=== PATIENT | female | born 1940 | race Asian ===

== ENCOUNTER 2017-02-15 05:51 | Inpatient (IN) | payer MEDICARE, OTHER ==
[~2017-02-15] VITALS: Ht 142.2 cm; Wt 42.0 kg
[~2017-02-15 05:51] MED LIST: ALBU8.5H8 IH; ATOR40TA28 PO; LEVO100T4 PO; LISI-660 PO; PANT40TA25 PO; RANI150T7 PO; TRAM50TA4 PO
[2017-02-15] MEDS ORDERED: TERA2 PO (06:03)
[2017-02-15] MEDS ORDERED: VITAD1000 PO (06:03)
[2017-02-15] MEDS ORDERED: ALBU8HFA4 IH (06:03)
[2017-02-15] MEDS ORDERED: TIOT4MIS2 IH (06:03)
[2017-02-15] MEDS ORDERED: ASPI81 PO (06:03)
[2017-02-15] MEDS ORDERED: VANC125C5 PO (06:03)
[2017-02-15] MEDS ORDERED: LACT30L PO (06:03)
[2017-02-15] MEDS ORDERED: ISOS30TA6 PO (06:03)
[2017-02-15] MEDS ORDERED: SERT100T12 PO (06:03)
[2017-02-15] MEDS ORDERED: MIRT15 PO (06:03)
[2017-02-15] MEDS ORDERED: HYDR-4061 PO (06:03)
[2017-02-15] MEDS ORDERED: ALBUTEROL SULFATE 2.5 MG/0.5 ML NEB SOLUTION NEB ONE (06:15)
[2017-02-15] MEDS ORDERED: MethylPREDNISolone SOD SUCC 125 MG/2 ML VIAL IVP ONE (06:15)
[2017-02-15] MEDS ORDERED: IPRATROPIUM BROMIDE 0.5 MG/2.5 ML NEB SOLUTION NEB ONE (06:15)
[2017-02-15] MEDS ORDERED: FUROSEMIDE 20 MG/2 ML VIAL IVP ONE ×2 (06:15→21:45)
[2017-02-15] MEDS ORDERED: NITROGLYCERIN 2% (1 GM=INCH) PACKET TP ONE (06:15)
[2017-02-15] MEDS ORDERED: AZITHROMYCIN 500 MG/NS 250 ML IV ONE (06:30)
[2017-02-15] MEDS ORDERED: CefTRIAXone 1 GM/DEXTROSE 50 ML IV ONE (06:30)
[2017-02-15 06:31] LABS: BASOPHILS # (AUTO) 0.03 K/uL (0.00-0.20); BASOPHILS % (AUTO) 0.4 % (0.0-2.0); EOSINOPHILS # (AUTO) 0.04 K/uL (0.00-0.70); EOSINOPHILS % (AUTO) 0.51 % (1.0-6.0); HEMATOCRIT 31.7 % (36-46); HEMOGLOBIN 10.6 g/dL (12.0-16.0); LYMPHOCYTES # (AUTO) 1.9 K/uL (1.0-4.8); LYMPHOCYTES % (AUTO) 22.5 % (22.0-44.0); MEAN CORPUSCULAR HEMOGLOBIN 34.6 pg (26.0-34.0); MEAN CORPUSCULAR HGB CONC 33.6 G/dL (31.0-37.0); MEAN CORPUSCULAR VOLUME 103 fL (80-100); MONOCYTES # (AUTO) 0.3 K/uL (0.1-1.0); MONOCYTES % (AUTO) 3.2 % (2.0-9.0); NEUTROPHILS # (AUTO) 6.1 K/uL (1.8-7.7); NEUTROPHILS % (AUTO) 73.4 % (40.0-70.0); PLATELET COUNT (AUTO) 159 K/uL (150-450); RED BLOOD CELL COUNT(AUTO) 3.07 MIL/uL (4.00-5.20); RED CELL DISTRIBUTION WIDTH 13.9 % (11.5-14.5); WHITE BLOOD COUNT (AUTO) 8.3 K/uL (4.5-11.0)
[2017-02-15 06:43] LABS: ANION GAP 12 mmol/L (8-16); CALCIUM, TOTAL 9.9 mg/dL (8.8-10.5); CARBON DIOXIDE 23 mmol/L (22-29); CHLORIDE 101 mmol/L (98-107); GLOMERULAR FILTR. RATE CALC 29 mL/min (>60); POTASSIUM 4.6 mmol/L (3.5-5.1); SODIUM SERUM 136 mmol/L (136-145); UREA NITROGEN, BLOOD 41 mg/dL (7-18)
[2017-02-15 06:58] LABS: ALANINE AMINOTRANSFERASE 34 U/L (12-78); ALBUMIN 3.8 g/dL (3.4-5.0); ASPARTATE AMINOTRANSFERASE 37 U/L (15-37); BILIRUBIN,TOTAL 0.4 mg/dL (0.1-1.0); CREATINE KINASE, TOTAL 64 U/L (26-192); THYROID STIMULATING HORMONE 2.28 uIU/mL (0.36-3.74); TOTAL PROTEIN, SERUM 8.2 g/dL (6.4-8.2)
[2017-02-15 07:21] LABS: PROTHROMBIN TIME 10.2 SEC (9.4-11.6)
[2017-02-15 07:22] LABS: B-TYPE NATRIURETIC PEPTIDE 3850 pg/mL (0-100)
[2017-02-15] MEDS ORDERED: FUROSEMIDE 40 MG/4 ML VIAL IVP ONE (07:30)
[2017-02-15 07:35] LABS: RBC MORPHOLOGY COMMENT ABNORMAL RBC MORPH
[2017-02-15 07:47] LABS: LACTIC ACID 3.2 mmol/L (0.4-2.0)
[2017-02-15 08:21] LABS: ABG A-A DIFF O2 107.8 mmHg (10-20.0); ABG BASE EXCESS -3.7 mmol/L (-2.0-3.0); ABG HCO3 21.5 mmol/L (22.0-26.0); ABG OXYHEMOGLOBIN 89.1 % (94.0-100.0); ABG PCO2 40 mmHg (35-45); ABG PH 7.357 (7.35-7.450)
[2017-02-15 08:22] LABS: IPAP, BG 14 cm H2O
[2017-02-15 08:57] LABS: REFLEX LACTIC ACID? YES YES
[2017-02-15] MEDS ORDERED: PANTOPRAZOLE SODIUM 40 MG/VIAL IVP ONE (10:30)
[2017-02-15] MEDS ORDERED: OxyCODONE HCL/ACETAMINOPHEN 5-325 MG TABLET PO PRN (11:15)
[2017-02-15] MEDS ORDERED: BISACODYL 10 MG RECTAL RECTAL SUPPOSITORY PR PRN (11:15)
[2017-02-15] MEDS ORDERED: DEXTROSE 50%-WATER 25 GM/50 ML SYRINGE IVP PRN (11:30)
[2017-02-15 11:54] VITALS: BP 148/73
[2017-02-15] MEDS: ATORVASTATIN CALCIUM 20 MG TABLET PO SCH (12:16)
[2017-02-15] MEDS: ASPIRIN 81 MG CHEWABLE TABLET PO SCH (12:17)
[2017-02-15] MEDS: CARVEDILOL 6.25 MG TABLET PO SCH ×2 (12:17→22:25)
[2017-02-15] MEDS: INSULIN ASPART 100 UNITS/ML SQ PRN ×3 (12:25→21:38)
[2017-02-15] MEDS: ACETAMINOPHEN 325 MG TABLET PO PRN (14:29)
[2017-02-15 16:06] VITALS: BP 146/66
[2017-02-15 16:22] LABS: GLUCOSE COMMENT 1 Received Meds; GLUCOSE,POINT OF CARE 235 MG/DL (70-110)
[2017-02-15] MEDS: TraMADol HCL 50 MG TABLET PO PRN (16:35)
[2017-02-15 19:31] VITALS: BP 149/73
[2017-02-15] MEDS: DOCUSATE SODIUM 100 MG CAPSULE PO SCH (20:37)
[2017-02-15] MEDS: HYDROCODONE/ACETAMINOPHEN 5-325 MG TABLET PO PRN (20:37)
[2017-02-15] MEDS ORDERED: 0.9% SODIUM CHLORIDE 5 ML NEB SOLUTION NEB ONE (20:45)
[2017-02-15] MEDS: ALBUTEROL SULFATE 2.5 MG/0.5 ML NEB SOLUTION NEB PRN (20:48)
[2017-02-15] MEDS ORDERED: HEPARIN SODIUM,PORCINE 5,000 UNITS/ML VIAL SQ SCH (21:00)
[2017-02-15] MEDS ORDERED: FUROSEMIDE 20 MG/2 ML VIAL IVP SCH (21:00)
[2017-02-15] MEDS ORDERED: HEPARIN SODIUM,PORCINE 5,000 UNITS/ML VIAL IVP ONE (21:45)
[2017-02-15] MEDS ORDERED: HEPARIN SODIUM,PORCINE 5,000 UNITS/ML VIAL IVP PRN ×2 (21:45)
[2017-02-15 22:18] LABS: BASOPHILS % (AUTO) 0.2 % (0.0-2.0); EOSINOPHILS % (AUTO) 0.1 % (1.0-6.0); HEMATOCRIT 29.9 % (36-46); HEMOGLOBIN 10.1 g/dL (12.0-16.0); LYMPHOCYTES # (AUTO) 0.9 K/uL (1.0-4.8); LYMPHOCYTES % (AUTO) 19.2 % (22.0-44.0); MEAN CORPUSCULAR HEMOGLOBIN 34.8 pg (26.0-34.0); MEAN CORPUSCULAR HGB CONC 33.8 G/dL (31.0-37.0); MEAN CORPUSCULAR VOLUME 103 fL (80-100); MONOCYTES # (AUTO) 0.5 K/uL (0.1-1.0); MONOCYTES % (AUTO) 11.7 % (2.0-9.0); NEUTROPHILS # (AUTO) 3.2 K/uL (1.8-7.7); NEUTROPHILS % (AUTO) 68.8 % (40.0-70.0); PLATELET COUNT (AUTO) 133 K/uL (150-450); RED BLOOD CELL COUNT(AUTO) 2.91 MIL/uL (4.00-5.20); RED CELL DISTRIBUTION WIDTH 14.3 % (11.5-14.5); WHITE BLOOD COUNT (AUTO) 4.7 K/uL (4.5-11.0)
[2017-02-15 22:23] VITALS: BP 151/77
[2017-02-15] MEDS: HEPARIN SODIUM 25000 UNITS/D5W 250 ML IV PRN (22:48)
[2017-02-15 23:05] LABS: PROTHROMBIN TIME 10.7 SEC (9.4-11.6)
[2017-02-15 23:15] LABS: RBC MORPHOLOGY COMMENT ABNORMAL RBC MORPH
[2017-02-16] VITALS (18 sets, daily range): BP systolic 110–194; BP diastolic 62–115
[2017-02-16] MEDS: TraMADol HCL 50 MG TABLET PO PRN ×2 (00:56→20:45)
[2017-02-16] MEDS: HYDROCODONE/ACETAMINOPHEN 5-325 MG TABLET PO PRN ×2 (03:58→11:06)
[2017-02-16 05:29] LABS: APPEARANCE,URINE CLEAR (CLEAR); GLUCOSE, URINE (UA) NEGATIVE (NEGATIVE); KETONES,URINE NEGATIVE (NEGATIVE); LEUKOCYTE ESTERASE ,URINE SMALL (NEGATIVE); OCCULT BLOOD,URINE NEGATIVE (NEGATIVE); PH,URINE 5.5 (5.0-8.0); PROTEIN,URINE NEGATIVE (NEGATIVE)
[2017-02-16 05:35] LABS: ADD UA MICROSCOPIC YES
[2017-02-16 05:58] LABS: RBC,URINE 0-2 /HPF (0-2); SQUAMOUS EPITHELIAL CELL,UR Few /LPF (None Seen)
[2017-02-16 06:19] LABS: BASOPHILS % (AUTO) 0.5 % (0.0-2.0); EOSINOPHILS % (AUTO) 1.3 % (1.0-6.0); HEMATOCRIT 29.2 % (36-46); HEMOGLOBIN 9.8 g/dL (12.0-16.0); LYMPHOCYTES # (AUTO) 1.3 K/uL (1.0-4.8); LYMPHOCYTES % (AUTO) 22.4 % (22.0-44.0); MEAN CORPUSCULAR HEMOGLOBIN 34.6 pg (26.0-34.0); MEAN CORPUSCULAR HGB CONC 33.5 G/dL (31.0-37.0); MEAN CORPUSCULAR VOLUME 103 fL (80-100); MONOCYTES # (AUTO) 0.6 K/uL (0.1-1.0); MONOCYTES % (AUTO) 10.7 % (2.0-9.0); NEUTROPHILS # (AUTO) 3.9 K/uL (1.8-7.7); NEUTROPHILS % (AUTO) 65.1 % (40.0-70.0); PLATELET COUNT (AUTO) 141 K/uL (150-450); RED BLOOD CELL COUNT(AUTO) 2.84 MIL/uL (4.00-5.20); WHITE BLOOD COUNT (AUTO) 5.9 K/uL (4.5-11.0)
[2017-02-16] MEDS: ACETAMINOPHEN 325 MG TABLET PO PRN (06:28)
[2017-02-16] MEDS: INSULIN ASPART 100 UNITS/ML SQ PRN (06:43)
[2017-02-16 06:56] LABS: ALBUMIN 3.4 g/dL (3.4-5.0); BILIRUBIN,TOTAL 0.2 mg/dL (0.1-1.0); CALCIUM, TOTAL 9.6 mg/dL (8.8-10.5); CREATININE 1.67 mg/dL (0.60-1.30); MAGNESIUM 2.2 mg/dL (1.80-2.40); POTASSIUM 4.3 mmol/L (3.5-5.1); TOTAL PROTEIN, SERUM 7.2 g/dL (6.4-8.2)
[2017-02-16 07:04] LABS: HEMOGLOBIN A1C 5.1 % (4.5-6.2)
[2017-02-16 07:42] LABS: GLUCOSE COMMENT 1 Received Meds; GLUCOSE,POINT OF CARE 112 MG/DL (70-110)
[2017-02-16] MEDS: FUROSEMIDE 40 MG/4 ML VIAL IVP SCH ×2 (08:54→20:45)
[2017-02-16] MEDS: ASPIRIN 81 MG CHEWABLE TABLET PO SCH (08:54)
[2017-02-16] MEDS: CARVEDILOL 6.25 MG TABLET PO SCH (08:55)
[2017-02-16] MEDS: PANTOPRAZOLE SODIUM 40 MG DR TABLET PO SCH (08:55)
[2017-02-16] MEDS: ATORVASTATIN CALCIUM 20 MG TABLET PO SCH (08:55)
[2017-02-16] MEDS: DOCUSATE SODIUM 100 MG CAPSULE PO SCH ×2 (08:55→20:10)
[2017-02-16 08:57] LABS: RBC MORPHOLOGY COMMENT ABNORMAL RBC MORPH
[2017-02-16 10:07] LABS: GLUCOSE,POINT OF CARE 106 MG/DL (70-110)
[2017-02-16] MEDS: HEPARIN SODIUM 25000 UNITS/D5W 250 ML IV PRN (10:12)
[2017-02-16 10:27] LABS: GLUCOSE COMMENT 1 Received Meds; GLUCOSE,POINT OF CARE 150 MG/DL (70-110)
[2017-02-16] MEDS ORDERED: VERAPAMIL HCL 2.5 MG/ML 2 ML VIAL ONE (16:12)
[2017-02-16] MEDS ORDERED: HEPARIN SODIUM 1000 UNITS/NS 1,000 ML ONE (16:12)
[2017-02-16] MEDS ORDERED: IOHEXOL 300 MG/ML 150 ML VIAL ONE (16:12)
[2017-02-16] MEDS ORDERED: LIDOCAINE HCL/PF 1% 30 ML VIAL ONE ×2 (16:12→17:03)
[2017-02-16] MEDS ORDERED: NITROGLYCERIN 50 MG/D5% WATER 0 ML ONE (16:12)
[2017-02-16 16:37] LABS: GLUCOSE,POINT OF CARE 115 MG/DL (70-110)
[2017-02-16] MEDS ORDERED: LIDOCAINE HCL/PF 1% 30 ML VIAL INJ ONE (17:00)
[2017-02-16] MEDS ORDERED: SODIUM CHLORIDE 0.9% 500 ML IV ONE (17:00)
[2017-02-16] MEDS ORDERED: IOHEXOL 300 MG/ML 150 ML VIAL IARTER ONE (17:00)
[2017-02-16] MEDS ORDERED: HEPARIN SODIUM 2,000 UNITS in HEPARIN SODIUM 1000 UNITS/NS 1,000 ML IARTER ONE (17:00)
[2017-02-16] MEDS ORDERED: FUROSEMIDE 40 MG/4 ML VIAL ONE ×2 (17:18→17:29)
[2017-02-16] MEDS ORDERED: FUROSEMIDE 40 MG/4 ML VIAL IVP ONE ×3 (17:30→18:30)
[2017-02-16] MEDS ORDERED: MORPHINE SULFATE 2 MG/ML SYRINGE ONE (17:40)
[2017-02-16] MEDS ORDERED: NITROGLYCERIN 2% (1 GM=INCH) PACKET TP ONE ×2 (17:41→17:45)
[2017-02-16] MEDS ORDERED: HydrALAZINE HCL 20 MG/ML VIAL IVP PRN (17:45)
[2017-02-16] MEDS ORDERED: MORPHINE SULFATE 2 MG/ML SYRINGE IVP ONE (17:45)
[2017-02-16] MEDS: CARVEDILOL 12.5 MG TABLET PO SCH (20:10)
[2017-02-17] VITALS (13 sets, daily range): BP systolic 128–160; BP diastolic 61–83
[2017-02-17] MEDS: ACETAMINOPHEN 325 MG TABLET PO PRN ×3 (02:46→18:43)
[2017-02-17] MEDS: TraMADol HCL 50 MG TABLET PO PRN ×2 (05:01→15:23)
[2017-02-17 05:03] LABS: BASOPHILS # (AUTO) 0.07 K/uL (0.00-0.20); BASOPHILS % (AUTO) 1.4 % (0.0-2.0); EOSINOPHILS # (AUTO) 0.07 K/uL (0.00-0.70); EOSINOPHILS % (AUTO) 1.33 % (1.0-6.0); HEMOGLOBIN 9.4 g/dL (12.0-16.0); LYMPHOCYTES # (AUTO) 1.2 K/uL (1.0-4.8); LYMPHOCYTES % (AUTO) 22.3 % (22.0-44.0); MEAN CORPUSCULAR HEMOGLOBIN 34.3 pg (26.0-34.0); MEAN CORPUSCULAR HGB CONC 33.6 G/dL (31.0-37.0); MEAN CORPUSCULAR VOLUME 102 fL (80-100); MONOCYTES # (AUTO) 0.5 K/uL (0.1-1.0); MONOCYTES % (AUTO) 10.4 % (2.0-9.0); NEUTROPHILS # (AUTO) 3.3 K/uL (1.8-7.7); NEUTROPHILS % (AUTO) 64.5 % (40.0-70.0); PLATELET COUNT (AUTO) 136 K/uL (150-450); RED BLOOD CELL COUNT(AUTO) 2.75 MIL/uL (4.00-5.20); RED CELL DISTRIBUTION WIDTH 13.9 % (11.5-14.5); WHITE BLOOD COUNT (AUTO) 5.2 K/uL (4.5-11.0)
[2017-02-17 05:16] LABS: ALBUMIN 3.5 g/dL (3.4-5.0); BILIRUBIN,TOTAL 0.4 mg/dL (0.1-1.0); CALCIUM, TOTAL 9.4 mg/dL (8.8-10.5); CREATININE 1.56 mg/dL (0.60-1.30); PHOSPHORUS 3.7 mg/dL (2.5-4.9); POTASSIUM 3.4 mmol/L (3.5-5.1); TOTAL PROTEIN, SERUM 7.2 g/dL (6.4-8.2)
[2017-02-17 07:22] LABS: GLUCOSE,POINT OF CARE 117 MG/DL (70-110)
[2017-02-17] MEDS: DOCUSATE SODIUM 100 MG CAPSULE PO SCH ×3 (09:00→21:00)
[2017-02-17] MEDS: PANTOPRAZOLE SODIUM 40 MG DR TABLET PO SCH (09:07)
[2017-02-17] MEDS: ATORVASTATIN CALCIUM 20 MG TABLET PO SCH (09:08)
[2017-02-17] MEDS: CARVEDILOL 12.5 MG TABLET PO SCH ×2 (09:08→21:03)
[2017-02-17] MEDS: ASPIRIN 81 MG CHEWABLE TABLET PO SCH (09:08)
[2017-02-17] MEDS: AmLODIPine BESYLATE 5 MG TABLET PO SCH (09:08)
[2017-02-17] MEDS: FUROSEMIDE 40 MG/4 ML VIAL IVP SCH ×2 (09:11→21:03)
[2017-02-17] MEDS ORDERED: POTASSIUM CHLORIDE 20 MEQ ER TABLET PO ONE (09:15)
[2017-02-17 10:33] LABS: RBC MORPHOLOGY COMMENT ABNORMAL RBC MORPH
[2017-02-17] MEDS: HYDROCODONE/ACETAMINOPHEN 5-325 MG TABLET PO PRN ×3 (12:05→21:03)
[2017-02-17 13:48] LABS: BASOPHILS # (AUTO) 0.02 K/uL (0.00-0.20); BASOPHILS % (AUTO) 0.4 % (0.0-2.0); EOSINOPHILS # (AUTO) 0.11 K/uL (0.00-0.70); EOSINOPHILS % (AUTO) 1.98 % (1.0-6.0); HEMATOCRIT 31.1 % (36-46); HEMOGLOBIN 10.5 g/dL (12.0-16.0); LYMPHOCYTES # (AUTO) 1.5 K/uL (1.0-4.8); LYMPHOCYTES % (AUTO) 27.1 % (22.0-44.0); MEAN CORPUSCULAR HEMOGLOBIN 34.4 pg (26.0-34.0); MEAN CORPUSCULAR HGB CONC 33.9 G/dL (31.0-37.0); MEAN CORPUSCULAR VOLUME 102 fL (80-100); MONOCYTES # (AUTO) 0.6 K/uL (0.1-1.0); MONOCYTES % (AUTO) 11.3 % (2.0-9.0); NEUTROPHILS # (AUTO) 3.3 K/uL (1.8-7.7); NEUTROPHILS % (AUTO) 59.2 % (40.0-70.0); PLATELET COUNT (AUTO) 144 K/uL (150-450); RED BLOOD CELL COUNT(AUTO) 3.06 MIL/uL (4.00-5.20); RED CELL DISTRIBUTION WIDTH 13.9 % (11.5-14.5); WHITE BLOOD COUNT (AUTO) 5.5 K/uL (4.5-11.0)
[2017-02-17 14:04] LABS: ALBUMIN 3.8 g/dL (3.4-5.0); BILIRUBIN,TOTAL 0.4 mg/dL (0.1-1.0); CALCIUM, TOTAL 9.8 mg/dL (8.8-10.5); CREATININE 1.53 mg/dL (0.60-1.30); MAGNESIUM 2.1 mg/dL (1.80-2.40); PHOSPHORUS 3.2 mg/dL (2.5-4.9); POTASSIUM 3.7 mmol/L (3.5-5.1); TOTAL PROTEIN, SERUM 7.8 g/dL (6.4-8.2)
[2017-02-17 14:07] LABS: RBC MORPHOLOGY COMMENT ABNORMAL RBC MORPH
[2017-02-18] MEDS: HYDROCODONE/ACETAMINOPHEN 5-325 MG TABLET PO PRN ×5 (01:36→21:13)
[2017-02-18] MEDS: TraMADol HCL 50 MG TABLET PO PRN (04:13)
[2017-02-18 05:29] VITALS: BP 157/73
[2017-02-18] MEDS: LEVOTHYROXINE SODIUM 100 MCG TABLET PO SCH (06:26)
[2017-02-18 07:25] LABS: CALCIUM, TOTAL 9.7 mg/dL (8.8-10.5); CREATININE 1.66 mg/dL (0.60-1.30); MAGNESIUM 2.1 mg/dL (1.80-2.40); PHOSPHORUS 3.6 mg/dL (2.5-4.9); POTASSIUM 3.8 mmol/L (3.5-5.1); THYROID STIMULATING HORMONE 2.71 uIU/mL (0.36-3.74)
[2017-02-18 08:00] VITALS: BP 107/58
[2017-02-18] MEDS: ATORVASTATIN CALCIUM 20 MG TABLET PO SCH (08:32)
[2017-02-18] MEDS: FUROSEMIDE 40 MG/4 ML VIAL IVP SCH ×2 (08:32→20:44)
[2017-02-18] MEDS: CARVEDILOL 12.5 MG TABLET PO SCH ×2 (08:32→20:44)
[2017-02-18] MEDS: PANTOPRAZOLE SODIUM 40 MG DR TABLET PO SCH (08:32)
[2017-02-18] MEDS: ASPIRIN 81 MG CHEWABLE TABLET PO SCH (08:32)
[2017-02-18] MEDS: DOCUSATE SODIUM 100 MG CAPSULE PO SCH ×2 (08:33→20:44)
[2017-02-18] MEDS: AmLODIPine BESYLATE 5 MG TABLET PO SCH (09:00)
[2017-02-18 11:41] VITALS: BP 94/59
[2017-02-18 11:54] LABS: GLUCOSE,POINT OF CARE 105 MG/DL (70-110)
[2017-02-18 11:54] LABS: GLUCOSE,POINT OF CARE 129 MG/DL (70-110)
[2017-02-18 16:30] VITALS: BP 96/66
[2017-02-18 16:48] LABS: GLUCOSE,POINT OF CARE 126 MG/DL (70-110)
[2017-02-18 20:06] VITALS: BP 147/74
[2017-02-18] MEDS: OXYGEN THERAPY IH SCH ×2 (20:44→20:55)
[2017-02-18] MEDS: INSULIN ASPART 100 UNITS/ML SQ PRN (21:16)
[2017-02-18 23:55] VITALS: BP 129/58
[2017-02-19] VITALS (15 sets, daily range): BP systolic 77–147; BP diastolic 36–71
[2017-02-19] MEDS: LEVOTHYROXINE SODIUM 100 MCG TABLET PO SCH (06:05)
[2017-02-19] MEDS: PANTOPRAZOLE SODIUM 40 MG DR TABLET PO SCH (08:43)
[2017-02-19] MEDS: DOCUSATE SODIUM 100 MG CAPSULE PO SCH ×2 (08:43→19:56)
[2017-02-19] MEDS: HYDROCODONE/ACETAMINOPHEN 5-325 MG TABLET PO PRN ×4 (08:44→21:01)
[2017-02-19] MEDS: ASPIRIN 81 MG CHEWABLE TABLET PO SCH (08:44)
[2017-02-19] MEDS: CARVEDILOL 12.5 MG TABLET PO SCH ×2 (08:44→19:56)
[2017-02-19] MEDS: ATORVASTATIN CALCIUM 20 MG TABLET PO SCH (08:44)
[2017-02-19] MEDS: AmLODIPine BESYLATE 5 MG TABLET PO SCH (08:45)
[2017-02-19] MEDS: FUROSEMIDE 40 MG/4 ML VIAL IVP SCH ×2 (08:45→19:56)
[2017-02-19] MEDS: TraMADol HCL 50 MG TABLET PO PRN ×2 (14:32→19:56)
[2017-02-19 15:37] LABS: GLUCOSE,POINT OF CARE 86 MG/DL (70-110)
[2017-02-19 15:37] LABS: GLUCOSE COMMENT 1 Received Meds; GLUCOSE,POINT OF CARE 186 MG/DL (70-110)
[2017-02-19 15:42] LABS: GLUCOSE COMMENT 1 Received Meds; GLUCOSE,POINT OF CARE 118 MG/DL (70-110)
[2017-02-19] MEDS: INSULIN ASPART 100 UNITS/ML SQ PRN (18:13)
[2017-02-19 19:47] LABS: GLUCOSE,POINT OF CARE 95 MG/DL (70-110)
[2017-02-19] MEDS: OXYGEN THERAPY IH SCH (19:56)
[2017-02-19] MEDS: ACETAMINOPHEN 325 MG TABLET PO PRN (19:57)
[2017-02-19 20:32] LABS: GLUCOSE,POINT OF CARE 112 MG/DL (70-110)
[2017-02-20] VITALS (8 sets, daily range): BP systolic 98–162; BP diastolic 59–75
[2017-02-20] MEDS: HYDROCODONE/ACETAMINOPHEN 5-325 MG TABLET PO PRN ×5 (01:20→23:32)
[2017-02-20] MEDS: LEVOTHYROXINE SODIUM 100 MCG TABLET PO SCH (06:23)
[2017-02-20 06:32] LABS: BASOPHILS % (AUTO) 0.5 % (0.0-2.0); EOSINOPHILS % (AUTO) 5.4 % (1.0-6.0); HEMATOCRIT 30.8 % (36-46); HEMOGLOBIN 10.2 g/dL (12.0-16.0); LYMPHOCYTES # (AUTO) 1.4 K/uL (1.0-4.8); LYMPHOCYTES % (AUTO) 29.1 % (22.0-44.0); MEAN CORPUSCULAR HEMOGLOBIN 33.8 pg (26.0-34.0); MEAN CORPUSCULAR HGB CONC 33.2 G/dL (31.0-37.0); MEAN CORPUSCULAR VOLUME 102 fL (80-100); MONOCYTES # (AUTO) 0.6 K/uL (0.1-1.0); MONOCYTES % (AUTO) 11.6 % (2.0-9.0); NEUTROPHILS # (AUTO) 2.6 K/uL (1.8-7.7); NEUTROPHILS % (AUTO) 53.4 % (40.0-70.0); PLATELET COUNT (AUTO) 161 K/uL (150-450); RED BLOOD CELL COUNT(AUTO) 3.03 MIL/uL (4.00-5.20); RED CELL DISTRIBUTION WIDTH 13.9 % (11.5-14.5); WHITE BLOOD COUNT (AUTO) 4.9 K/uL (4.5-11.0)
[2017-02-20 06:50] LABS: ALBUMIN 3.4 g/dL (3.4-5.0); BILIRUBIN,TOTAL 0.3 mg/dL (0.1-1.0); CALCIUM, TOTAL 9.4 mg/dL (8.8-10.5); CREATININE 1.51 mg/dL (0.60-1.30); MAGNESIUM 2.3 mg/dL (1.80-2.40); PHOSPHORUS 3.9 mg/dL (2.5-4.9); POTASSIUM 3.9 mmol/L (3.5-5.1); TOTAL PROTEIN, SERUM 7.2 g/dL (6.4-8.2)
[2017-02-20] MEDS: ATORVASTATIN CALCIUM 20 MG TABLET PO SCH (08:17)
[2017-02-20] MEDS: PANTOPRAZOLE SODIUM 40 MG DR TABLET PO SCH (08:17)
[2017-02-20] MEDS: TraMADol HCL 50 MG TABLET PO PRN (08:17)
[2017-02-20] MEDS: ASPIRIN 81 MG CHEWABLE TABLET PO SCH (08:17)
[2017-02-20] MEDS: CARVEDILOL 12.5 MG TABLET PO SCH ×2 (08:18→20:39)
[2017-02-20] MEDS: OXYGEN THERAPY IH SCH ×2 (08:20→20:40)
[2017-02-20] MEDS: DOCUSATE SODIUM 100 MG CAPSULE PO SCH ×2 (08:20→20:40)
[2017-02-20] MEDS: FUROSEMIDE 40 MG/4 ML VIAL IVP SCH (09:23)
[2017-02-20] MEDS: ACETAMINOPHEN 325 MG TABLET PO PRN ×3 (09:24→20:39)
[2017-02-20] MEDS: LORazepam 0.5 MG TABLET PO PRN ×2 (14:51→20:39)
[2017-02-20] MEDS ORDERED: 0.9% SODIUM CHLORIDE 5 ML NEB SOLUTION NEB ONE (23:29)
[2017-02-20] MEDS: ALBUTEROL SULFATE 2.5 MG/0.5 ML NEB SOLUTION NEB PRN (23:30)
[2017-02-21] VITALS (14 sets, daily range): BP systolic 83–152; BP diastolic 30–81
[2017-02-21] MEDS: LORazepam 0.5 MG TABLET PO PRN ×2 (02:18→20:06)
[2017-02-21] MEDS: HYDROCODONE/ACETAMINOPHEN 5-325 MG TABLET PO PRN ×3 (03:26→20:50)
[2017-02-21] MEDS: LEVOTHYROXINE SODIUM 100 MCG TABLET PO SCH (05:37)
[2017-02-21 06:03] LABS: GLUCOSE,POINT OF CARE 180 MG/DL (70-110)
[2017-02-21 06:08] LABS: GLUCOSE,POINT OF CARE 99 MG/DL (70-110)
[2017-02-21 07:00] LABS: CALCIUM, TOTAL 9.7 mg/dL (8.8-10.5); CREATININE 1.58 mg/dL (0.60-1.30); MAGNESIUM 2.4 mg/dL (1.80-2.40); PHOSPHORUS 4.2 mg/dL (2.5-4.9); POTASSIUM 4.4 mmol/L (3.5-5.1)
[2017-02-21 07:58] LABS: GLUCOSE,POINT OF CARE 102 MG/DL (70-110)
[2017-02-21 07:58] LABS: GLUCOSE COMMENT 1 Received Meds; GLUCOSE,POINT OF CARE 122 MG/DL (70-110)
[2017-02-21 07:59] LABS: GLUCOSE,POINT OF CARE 135 MG/DL (70-110)
[2017-02-21] MEDS: OXYGEN THERAPY IH SCH ×2 (08:00→20:16)
[2017-02-21] MEDS: ATORVASTATIN CALCIUM 20 MG TABLET PO SCH (09:00)
[2017-02-21] MEDS: ASPIRIN 81 MG CHEWABLE TABLET PO SCH (09:00)
[2017-02-21] MEDS: ACETYLCYSTEINE 20% 200 MG/ML 4 ML ORAL SOLUTION PO SCH ×2 (09:00→20:28)
[2017-02-21] MEDS ORDERED: FUROSEMIDE 40 MG/4 ML VIAL IVP SCH (09:00)
[2017-02-21] MEDS: PANTOPRAZOLE SODIUM 40 MG DR TABLET PO SCH (09:00)
[2017-02-21] MEDS: CARVEDILOL 12.5 MG TABLET PO SCH ×2 (09:00→20:06)
[2017-02-21] MEDS: DOCUSATE SODIUM 100 MG CAPSULE PO SCH ×2 (09:00→20:06)
[2017-02-21 11:12] LABS: GLUCOSE COMMENT 1 Received Meds; GLUCOSE,POINT OF CARE 136 MG/DL (70-110)
[2017-02-21 11:12] LABS: GLUCOSE,POINT OF CARE 99 MG/DL (70-110)
[2017-02-21] MEDS ORDERED: LIDOCAINE HCL/PF 1% 30 ML VIAL ONE (11:50)
[2017-02-21] MEDS ORDERED: HEPARIN SODIUM 1000 UNITS/NS 1,000 ML ONE (11:50)
[2017-02-21] MEDS ORDERED: IOHEXOL 300 MG/ML 150 ML VIAL ONE (11:50)
[2017-02-21] MEDS ORDERED: FUROSEMIDE 40 MG/4 ML VIAL ONE (12:51)
[2017-02-21] MEDS ORDERED: FentaNYL CITRATE-PF 100 MCG/2 ML VIAL ONE (13:26)
[2017-02-21] MEDS ORDERED: HEPARIN SODIUM 2,000 UNITS in HEPARIN SODIUM 1000 UNITS/NS 1,000 ML IARTER ONE (13:28)
[2017-02-21] MEDS ORDERED: FentaNYL CITRATE-PF 100 MCG/2 ML VIAL IVP ONE ×2 (13:30→14:00)
[2017-02-21] MEDS ORDERED: IOHEXOL 300 MG/ML 150 ML VIAL IARTER ONE (13:30)
[2017-02-21] MEDS ORDERED: LIDOCAINE HCL/PF 1% 30 ML VIAL INJ ONE (13:30)
[2017-02-21] MEDS ORDERED: IOHEXOL 300 MG/ML 100 ML VIAL ONE (13:41)
[2017-02-21] MEDS ORDERED: FUROSEMIDE 40 MG/4 ML VIAL IVP ONE (14:00)
[2017-02-21] MEDS: SODIUM CHLORIDE 0.9% 1,000 ML IV SCH (16:25)
[2017-02-21] MEDS ORDERED: 0.9% SODIUM CHLORIDE 5 ML NEB SOLUTION NEB ONE ×2 (16:27→16:55)
[2017-02-21] MEDS: ALBUTEROL SULFATE 2.5 MG/0.5 ML NEB SOLUTION NEB PRN ×2 (16:33→16:56)
[2017-02-21] MEDS: INSULIN ASPART 100 UNITS/ML SQ PRN ×2 (18:39→20:56)
[2017-02-21] MEDS: FUROSEMIDE 40 MG/4 ML VIAL IVP SCH (20:06)
[2017-02-22] VITALS (12 sets, daily range): BP systolic 58–116; BP diastolic 52–80
[2017-02-22] MEDS: HYDROCODONE/ACETAMINOPHEN 5-325 MG TABLET PO PRN ×4 (00:12→21:36)
[2017-02-22] MEDS: TraMADol HCL 50 MG TABLET PO PRN ×2 (03:12→12:15)
[2017-02-22] MEDS: SODIUM CHLORIDE 0.9% 1,000 ML IV SCH (04:28)
[2017-02-22] MEDS: INSULIN ASPART 100 UNITS/ML SQ PRN ×2 (04:36→11:51)
[2017-02-22 05:18] LABS: HEMATOCRIT 26.7 % (36-46); HEMOGLOBIN 8.9 g/dL (12.0-16.0); MEAN CORPUSCULAR HEMOGLOBIN 34.1 pg (26.0-34.0); MEAN CORPUSCULAR HGB CONC 33.4 G/dL (31.0-37.0); MEAN CORPUSCULAR VOLUME 102 fL (80-100); PLATELET COUNT (AUTO) 136 K/uL (150-450); RED BLOOD CELL COUNT(AUTO) 2.62 MIL/uL (4.00-5.20); RED CELL DISTRIBUTION WIDTH 13.6 % (11.5-14.5); WHITE BLOOD COUNT (AUTO) 6.4 K/uL (4.5-11.0)
[2017-02-22] MEDS: LEVOTHYROXINE SODIUM 100 MCG TABLET PO SCH (05:30)
[2017-02-22 05:32] LABS: ALBUMIN 3.2 g/dL (3.4-5.0); BILIRUBIN,TOTAL 0.3 mg/dL (0.1-1.0); CREATININE 1.77 mg/dL (0.60-1.30); MAGNESIUM 2.2 mg/dL (1.80-2.40); POTASSIUM 3.4 mmol/L (3.5-5.1); TOTAL PROTEIN, SERUM 6.5 g/dL (6.4-8.2)
[2017-02-22] MEDS: ACETAMINOPHEN 325 MG TABLET PO PRN ×4 (06:20→19:09)
[2017-02-22 07:45] LABS: LYMPHOCYTES % (MANUAL) 21 % (22-44); TOTAL CELLS COUNTED 100
[2017-02-22] MEDS ORDERED: POTASSIUM CHLORIDE 20 MEQ ER TABLET PO ONE (07:45)
[2017-02-22 07:46] LABS: RBC MORPHOLOGY COMMENT ABNORMAL RBC MORPH
[2017-02-22] MEDS: PANTOPRAZOLE SODIUM 40 MG DR TABLET PO SCH (08:14)
[2017-02-22] MEDS: ASPIRIN 81 MG CHEWABLE TABLET PO SCH (08:15)
[2017-02-22] MEDS: OXYGEN THERAPY IH SCH ×2 (08:15→20:32)
[2017-02-22] MEDS: DOCUSATE SODIUM 100 MG CAPSULE PO SCH ×2 (08:15→20:31)
[2017-02-22] MEDS: ATORVASTATIN CALCIUM 20 MG TABLET PO SCH (08:15)
[2017-02-22] MEDS: FUROSEMIDE 40 MG/4 ML VIAL IVP SCH ×2 (08:15→20:31)
[2017-02-22] MEDS: CARVEDILOL 12.5 MG TABLET PO SCH ×2 (08:16→20:33)
[2017-02-22] MEDS: ACETYLCYSTEINE 20% 200 MG/ML 4 ML ORAL SOLUTION PO SCH ×2 (10:45→20:32)
[2017-02-22 11:21] LABS: GLUCOSE, URINE (UA) NEGATIVE (NEGATIVE); KETONES,URINE NEGATIVE (NEGATIVE); LEUKOCYTE ESTERASE ,URINE NEGATIVE (NEGATIVE); OCCULT BLOOD,URINE MODERATE (NEGATIVE); PROTEIN,URINE SEE CONFIRM (NEGATIVE)
[2017-02-22 11:56] LABS: APPEARANCE,URINE HAZY (CLEAR)
[2017-02-22 11:58] LABS: RBC,URINE 26-50 /HPF (0-2); SQUAMOUS EPITHELIAL CELL,UR Few /LPF (None Seen); SULFOSALICYLIC ACID,URINE 2+ (Negative); WBC,URINE 0-2 /HPF (0-5)
[2017-02-22] MEDS: LORazepam 0.5 MG TABLET PO PRN (12:15)
[2017-02-22 14:13] LABS: GLUCOSE COMMENT 1 Received Meds; GLUCOSE,POINT OF CARE 145 MG/DL (70-110)
[2017-02-22 14:27] LABS: GLUCOSE COMMENT 1 Received Meds; GLUCOSE,POINT OF CARE 172 MG/DL (70-110)
[2017-02-22 14:27] LABS: GLUCOSE,POINT OF CARE 120 MG/DL (70-110)
[2017-02-22] MEDS ORDERED: 0.9% SODIUM CHLORIDE 5 ML NEB SOLUTION NEB ONE ×2 (20:31→23:29)
[2017-02-22] MEDS: ALBUTEROL SULFATE 2.5 MG/0.5 ML NEB SOLUTION NEB PRN ×2 (20:38→23:34)
[2017-02-22 22:07] LABS: GLUCOSE,POINT OF CARE 86 MG/DL (70-110)
[2017-02-23] MEDS: HYDROCODONE/ACETAMINOPHEN 5-325 MG TABLET PO PRN ×4 (01:37→20:17)
[2017-02-23] MEDS ORDERED: 0.9% SODIUM CHLORIDE 5 ML NEB SOLUTION NEB ONE ×2 (03:28→07:47)
[2017-02-23] MEDS: ALBUTEROL SULFATE 2.5 MG/0.5 ML NEB SOLUTION NEB PRN ×2 (03:31→08:00)
[2017-02-23 04:45] VITALS: BP 110/74
[2017-02-23] MEDS: TraMADol HCL 50 MG TABLET PO PRN ×2 (05:41→13:46)
[2017-02-23] MEDS: LEVOTHYROXINE SODIUM 100 MCG TABLET PO SCH (06:07)
[2017-02-23] MEDS: INSULIN ASPART 100 UNITS/ML SQ PRN ×2 (06:11→22:49)
[2017-02-23 06:35] LABS: BASOPHILS % (AUTO) 0.3 % (0.0-2.0); EOSINOPHILS % (AUTO) 0.3 % (1.0-6.0); HEMATOCRIT 25.9 % (36-46); HEMOGLOBIN 8.7 g/dL (12.0-16.0); LYMPHOCYTES # (AUTO) 0.6 K/uL (1.0-4.8); LYMPHOCYTES % (AUTO) 7.5 % (22.0-44.0); MEAN CORPUSCULAR HEMOGLOBIN 33.8 pg (26.0-34.0); MEAN CORPUSCULAR HGB CONC 33.5 G/dL (31.0-37.0); MEAN CORPUSCULAR VOLUME 101 fL (80-100); MONOCYTES # (AUTO) 0.7 K/uL (0.1-1.0); MONOCYTES % (AUTO) 9.4 % (2.0-9.0); NEUTROPHILS # (AUTO) 6.5 K/uL (1.8-7.7); NEUTROPHILS % (AUTO) 82.5 % (40.0-70.0); PLATELET COUNT (AUTO) 129 K/uL (150-450); RED BLOOD CELL COUNT(AUTO) 2.56 MIL/uL (4.00-5.20); RED CELL DISTRIBUTION WIDTH 13.8 % (11.5-14.5); WHITE BLOOD COUNT (AUTO) 7.9 K/uL (4.5-11.0)
[2017-02-23 06:56] LABS: RBC MORPHOLOGY COMMENT ABNORMAL RBC MORPH
[2017-02-23 07:09] LABS: ALBUMIN 3.4 g/dL (3.4-5.0); BILIRUBIN,TOTAL 0.4 mg/dL (0.1-1.0); CALCIUM, TOTAL 9.1 mg/dL (8.8-10.5); CREATININE 2.28 mg/dL (0.60-1.30); MAGNESIUM 2.1 mg/dL (1.80-2.40); PHOSPHORUS 4.2 mg/dL (2.5-4.9)
[2017-02-23 07:17] LABS: GLUCOSE COMMENT 1 Received Meds; GLUCOSE,POINT OF CARE 186 MG/DL (70-110)
[2017-02-23 07:22] LABS: GLUCOSE COMMENT 1 Received Meds; GLUCOSE,POINT OF CARE 165 MG/DL (70-110)
[2017-02-23 07:37] VITALS: BP 109/69
[2017-02-23] MEDS: ASPIRIN 81 MG CHEWABLE TABLET PO SCH (07:53)
[2017-02-23] MEDS: ATORVASTATIN CALCIUM 20 MG TABLET PO SCH (07:53)
[2017-02-23] MEDS: FUROSEMIDE 40 MG/4 ML VIAL IVP SCH ×2 (07:53→20:17)
[2017-02-23] MEDS: LORazepam 0.5 MG TABLET PO PRN ×2 (07:54→16:42)
[2017-02-23] MEDS: PANTOPRAZOLE SODIUM 40 MG DR TABLET PO SCH (07:55)
[2017-02-23] MEDS: OXYGEN THERAPY IH SCH ×2 (08:01→20:12)
[2017-02-23] MEDS: DOCUSATE SODIUM 100 MG CAPSULE PO SCH ×2 (08:04→20:17)
[2017-02-23] MEDS ORDERED: POTASSIUM CHLORIDE 20 MEQ ER TABLET PO ONE (08:15)
[2017-02-23] MEDS ORDERED: POTASSIUM CHLORIDE 10% 40 MEQ/30 ML LIQUID UDCUP PO PRN ×2 (08:15)
[2017-02-23] MEDS: POTASSIUM CHL 10 MEQ/WATER 50 ML IV SCH ×2 (08:15→09:15)
[2017-02-23] MEDS ORDERED: POTASSIUM CHLORIDE 20 MEQ ER TABLET PO PRN ×2 (08:15)
[2017-02-23] MEDS: CARVEDILOL 12.5 MG TABLET PO SCH ×2 (09:00→20:18)
[2017-02-23 11:25] VITALS: BP 116/68
[2017-02-23] MEDS: ACETAMINOPHEN 325 MG TABLET PO PRN (12:37)
[2017-02-23] MEDS ORDERED: BUDESONIDE 0.5 MG/2 ML NEB SOLUTION NEB ONE (14:49)
[2017-02-23] MEDS: ALBUTEROL SULFATE 2.5 MG/0.5 ML NEB SOLUTION NEB SCH ×3 (14:55→22:56)
[2017-02-23] MEDS: BUDESONIDE 0.5 MG/2 ML NEB SOLUTION NEB SCH (14:56)
[2017-02-23] MEDS: MethylPREDNISolone SOD SUCC 125 MG/2 ML VIAL IVP SCH ×3 (15:21→23:14)
[2017-02-23 15:36] LABS: ABG A-A DIFF O2 72.4 mmHg (10-20.0); ABG BASE EXCESS -5.9 mmol/L (-2.0-3.0); ABG HCO3 20.3 mmol/L (22.0-26.0); ABG OXYHEMOGLOBIN 94.8 % (94.0-100.0); ABG PCO2 33 mmHg (35-45); ABG PH 7.381 (7.35-7.450); TEMPERATURE, FAHRENHEIT, BG 98.6 FAHREN (96.0-98.6)
[2017-02-23 15:37] VITALS: BP 106/69
[2017-02-23 15:37] LABS: ALLEN TEST, BLOOD GAS Positive
[2017-02-23] MEDS: IPRATROPIUM BROMIDE 0.5 MG/2.5 ML NEB SOLUTION NEB SCH ×3 (16:30→22:56)
[2017-02-23 20:08] VITALS: BP 110/76
[2017-02-24] VITALS (9 sets, daily range): BP systolic 99–116; BP diastolic 55–80
[2017-02-24] MEDS: HYDROCODONE/ACETAMINOPHEN 5-325 MG TABLET PO PRN ×3 (00:21→13:23)
[2017-02-24] MEDS: ALBUTEROL SULFATE 2.5 MG/0.5 ML NEB SOLUTION NEB SCH ×6 (03:22→23:09)
[2017-02-24] MEDS: IPRATROPIUM BROMIDE 0.5 MG/2.5 ML NEB SOLUTION NEB SCH ×6 (03:22→23:08)
[2017-02-24] MEDS: INSULIN ASPART 100 UNITS/ML SQ PRN ×3 (05:33→20:34)
[2017-02-24] MEDS: MethylPREDNISolone SOD SUCC 125 MG/2 ML VIAL IVP SCH ×4 (05:44→23:59)
[2017-02-24] MEDS: LEVOTHYROXINE SODIUM 100 MCG TABLET PO SCH (05:45)
[2017-02-24 06:29] LABS: CALCIUM, TOTAL 9.8 mg/dL (8.8-10.5); CREATININE 2.55 mg/dL (0.60-1.30); MAGNESIUM 2.5 mg/dL (1.80-2.40); PHOSPHORUS 4.2 mg/dL (2.5-4.9); POTASSIUM 3.7 mmol/L (3.5-5.1)
[2017-02-24 06:50] LABS: EOSINOPHILS % (AUTO) 0 % (1.0-6.0); HEMATOCRIT 26.4 % (36-46); HEMOGLOBIN 8.8 g/dL (12.0-16.0); LYMPHOCYTES # (AUTO) 0.3 K/uL (1.0-4.8); LYMPHOCYTES % (AUTO) 7.9 % (22.0-44.0); MEAN CORPUSCULAR HEMOGLOBIN 33.8 pg (26.0-34.0); MEAN CORPUSCULAR HGB CONC 33.4 G/dL (31.0-37.0); MEAN CORPUSCULAR VOLUME 101 fL (80-100); MONOCYTES % (AUTO) 1.1 % (2.0-9.0); NEUTROPHILS # (AUTO) 3.4 K/uL (1.8-7.7); PLATELET COUNT (AUTO) 136 K/uL (150-450); RED BLOOD CELL COUNT(AUTO) 2.61 MIL/uL (4.00-5.20); RED CELL DISTRIBUTION WIDTH 13.9 % (11.5-14.5); WHITE BLOOD COUNT (AUTO) 3.8 K/uL (4.5-11.0)
[2017-02-24] MEDS: BUDESONIDE 0.5 MG/2 ML NEB SOLUTION NEB SCH ×2 (07:37→19:27)
[2017-02-24] MEDS: ATORVASTATIN CALCIUM 20 MG TABLET PO SCH (07:50)
[2017-02-24] MEDS: ASPIRIN 81 MG CHEWABLE TABLET PO SCH (07:50)
[2017-02-24] MEDS: DOCUSATE SODIUM 100 MG CAPSULE PO SCH ×2 (07:51→20:27)
[2017-02-24] MEDS: PANTOPRAZOLE SODIUM 40 MG DR TABLET PO SCH (07:51)
[2017-02-24] MEDS: FUROSEMIDE 40 MG/4 ML VIAL IVP SCH ×2 (07:53→20:28)
[2017-02-24] MEDS: OXYGEN THERAPY IH SCH ×2 (07:57→19:12)
[2017-02-24 08:31] LABS: RBC MORPHOLOGY COMMENT ABNORMAL RBC MORPH
[2017-02-24] MEDS: LORazepam 0.5 MG TABLET PO PRN ×2 (09:26→22:28)
[2017-02-24 12:13] LABS: GLUCOSE COMMENT 1 Received Meds; GLUCOSE,POINT OF CARE 162 MG/DL (70-110)
[2017-02-24 12:13] LABS: GLUCOSE COMMENT 1 Received Meds; GLUCOSE,POINT OF CARE 202 MG/DL (70-110)
[2017-02-24 12:13] LABS: GLUCOSE,POINT OF CARE 166 MG/DL (70-110)
[2017-02-24 12:13] LABS: GLUCOSE,POINT OF CARE 139 MG/DL (70-110)
[2017-02-24] MEDS: CARVEDILOL 12.5 MG TABLET PO SCH ×2 (12:16→21:00)
[2017-02-24] MEDS ORDERED: AUD NEB ×2 (14:41→14:48)
[2017-02-24] MEDS ORDERED: CARV12 PO (14:42)
[2017-02-24] MEDS ORDERED: BUDE0.5A3 NEB (14:42)
[2017-02-24] MEDS ORDERED: FURO40I IV (14:43)
[2017-02-24] MEDS ORDERED: IPRNEB NEB (14:44)
[2017-02-24] MEDS ORDERED: METH125V14 IVP (14:45)
[2017-02-24] MEDS ORDERED: PANT40TA25 PO (14:46)
[2017-02-24] MEDS ORDERED: ACET-784 PO (14:47)
[2017-02-24] MEDS ORDERED: BISA10S PR (14:49)
[2017-02-24] MEDS ORDERED: LORA0.5T2 PO (14:52)
[2017-02-24] MEDS ORDERED: INSNOV SQ (14:52)
[2017-02-24] MEDS: ACETAMINOPHEN 325 MG TABLET PO PRN ×2 (17:31→21:08)
[2017-02-24] MEDS: TraMADol HCL 50 MG TABLET PO PRN (21:50)
[2017-02-25] MEDS: ACETAMINOPHEN 325 MG TABLET PO PRN (01:15)
[2017-02-25] MEDS: IPRATROPIUM BROMIDE 0.5 MG/2.5 ML NEB SOLUTION NEB SCH ×2 (03:25→06:53)
[2017-02-25] MEDS: ALBUTEROL SULFATE 2.5 MG/0.5 ML NEB SOLUTION NEB SCH ×2 (03:25→06:55)
[2017-02-25 04:18] VITALS: BP 100/59
[2017-02-25] MEDS: LEVOTHYROXINE SODIUM 100 MCG TABLET PO SCH (06:23)
[2017-02-25] MEDS: MethylPREDNISolone SOD SUCC 125 MG/2 ML VIAL IVP SCH (06:24)
[2017-02-25] MEDS: INSULIN ASPART 100 UNITS/ML SQ PRN (06:29)
[2017-02-25 06:32] LABS: CALCIUM, TOTAL 9.8 mg/dL (8.8-10.5); CREATININE 3.11 mg/dL (0.60-1.30); MAGNESIUM 2.6 mg/dL (1.80-2.40); PHOSPHORUS 5.9 mg/dL (2.5-4.9)
[2017-02-25] MEDS: BUDESONIDE 0.5 MG/2 ML NEB SOLUTION NEB SCH (07:05)
[2017-02-25] MEDS: OXYGEN THERAPY IH SCH (07:06)
[2017-02-25 07:25] VITALS: BP 109/70
[2017-02-25] MEDS: ASPIRIN 81 MG CHEWABLE TABLET PO SCH (08:18)
[2017-02-25] MEDS: DOCUSATE SODIUM 100 MG CAPSULE PO SCH (08:19)
[2017-02-25] MEDS: PANTOPRAZOLE SODIUM 40 MG DR TABLET PO SCH (08:19)
[2017-02-25] MEDS: ATORVASTATIN CALCIUM 20 MG TABLET PO SCH (08:19)
[2017-02-25] MEDS: FUROSEMIDE 40 MG/4 ML VIAL IVP SCH ×2 (08:20→09:00)
[2017-02-25] MEDS: HYDROCODONE/ACETAMINOPHEN 5-325 MG TABLET PO PRN ×2 (08:20)
[2017-02-25] MEDS: CARVEDILOL 12.5 MG TABLET PO SCH (08:20)
[2017-02-25] MEDS ORDERED: HYDR20I IM (09:47)
[2017-02-25] MEDS ORDERED: DSS100 PO (09:49)
[2017-02-25 09:56] LABS: GLUCOSE COMMENT 1 Received Meds; GLUCOSE,POINT OF CARE 206 MG/DL (70-110)
[2017-02-25 10:00] LABS: GLUCOSE,POINT OF CARE 128 MG/DL (70-110)
[2017-02-25 10:00] LABS: GLUCOSE COMMENT 1 Received Meds; GLUCOSE,POINT OF CARE 162 MG/DL (70-110)
[2017-02-25 10:12] LABS: GLUCOSE,POINT OF CARE 167 MG/DL (70-110)
== END 2017-02-25 10:45 | DRG 280 ==
LOC: EMS 05:52 → 5S 11:06 → 5N 02-16 17:30 → ICU 02-16 18:30 → 5N 02-17 21:15 → ICU 02-21 14:29 → 5N 02-22 18:15
PROVIDERS: ADMIT Internal Medicine; ATTEND Internal Medicine
PROC: 4A023N7 Measurement of Cardiac Sampling and Pressure, Left Heart, Percutaneous Approach (ICD-10-PCS; principal; 2017-02-21)
PROC: B2111ZZ Fluoroscopy of Multiple Coronary Arteries using Low Osmolar Contrast (ICD-10-PCS; 2017-02-21)
PROC: B2151ZZ Fluoroscopy of Left Heart using Low Osmolar Contrast (ICD-10-PCS; 2017-02-21)
PROC: B4101ZZ Fluoroscopy of Abdominal Aorta using Low Osmolar Contrast (ICD-10-PCS; 2017-02-21)
DX: I21.3 ST elevation (STEMI) myocardial infarction of unspecified site (principal); I50.43 Acute on chronic combined systolic (congestive) and diastolic (congestive) heart failure; J96.01 Acute respiratory failure with hypoxia; N17.0 Acute kidney failure with tubular necrosis; I13.0 Hypertensive heart and chronic kidney disease with heart failure and stage 1 through stage 4 chronic kidney disease, or unspecified chronic kidney disease; J44.1 Chronic obstructive pulmonary disease with (acute) exacerbation; I71.4 Abdominal aortic aneurysm, without rupture; D64.9 Anemia, unspecified; E03.9 Hypothyroidism, unspecified; E78.5 Hyperlipidemia, unspecified; E87.6 Hypokalemia; F03.90 Unspecified dementia, unspecified severity, without behavioral disturbance, psychotic disturbance, mood disturbance, and anxiety; I25.10 Atherosclerotic heart disease of native coronary artery without angina pectoris; I25.5 Ischemic cardiomyopathy; I35.0 Nonrheumatic aortic (valve) stenosis; I73.9 Peripheral vascular disease, unspecified; N05.9 Unspecified nephritic syndrome with unspecified morphologic changes; N18.9 Chronic kidney disease, unspecified; Z82.49 Family history of ischemic heart disease and other diseases of the circulatory system; Z82.5 Family history of asthma and other chronic lower respiratory diseases; I25.2 Old myocardial infarction; Z85.850 Personal history of malignant neoplasm of thyroid; Z87.891 Personal history of nicotine dependence; Z92.3 Personal history of irradiation; Z98.82 Breast implant status
CPT/HCPCS: 51702; 71250; 72192; 74150; 76705; 76770; 82570; 82803; 82805; 82962; 83036; 83605; 83735; 84100; 84132; 84300; 84443; 84540; 85007; 87040; 87081; 87086; 93005; 93306; 94640; 94660; 96365; 96366; 96375; 96376; 99291; C9113; J0456; J0696; J1644; J1940; J2270; J2930; J3010; J3490; J7030; Q9967